=== PATIENT | female | born 1960 | race Caucasian/White ===

== ENCOUNTER → 2016-09-18 | Outpatient (CLI) | payer MEDICAID | LOC: FIMAGING 11:01 | PROVIDERS: ATTEND Registered Nurse | DX: M79.675 Pain in left toe(s) (principal); M19.072 Primary osteoarthritis, left ankle and foot ==

== ENCOUNTER 2017-02-28 19:55 | Emergency (ER) | payer MEDICAID ==
[2017-02-28 20:02] VITALS: TEMP 98.1
--- NOTE | 2017-02-28 20:05 | EDPHY ---
H & P Stated Complaint: right sided back spasm starting at 0900 Time Seen by Provider: 02/28/17 20:05 - Personal History Current Tetanus/Diphtheria Vaccine: Unsure Current Tetanus Diphtheria and Acellular Pertussis (TDAP): Unsure - Medical/Surgical History Hx Asthma: No Hx Chronic Respiratory Disease: No Hx Diabetes: No Hx Cardiac Disease: No Hx Renal Disease: No Hx Cirrhosis: No Hx Alcoholism: No Hx HIV/AIDS: No Hx Splenectomy or Spleen Trauma: No Other PMH: denies - Social History Smoking Status: Never smoked Constitutional: Initial Vital Signs Temperature (C) 36.7 C 02/28/17 19:58 Heart Rate 55 L 02/28/17 19:58 Respiratory Rate 16 02/28/17 19:58 Blood Pressure 122/80 H 02/28/17 19:58 O2 Sat (%) 99 02/28/17 19:58 O2 Delivery Mode Room Air Allergies/Adverse Reactions: No Known Allergies Allergy (Unverified 02/28/17 19:58) Home Medications: Medication Instructions Recorded NK [No Known Home Meds] 02/28/17 Medical Decision Making ED Course/Re-evaluation: CHIEF COMPLAINT: HISTORY OF PRESENT ILLNESS: must have 4 elements: Location, Quality, Severity , Duration, Timing, Context, Modifying Factors, Associated Signs and Symptoms REVIEW OF SYSTEMS: A 10 point review of systems was performed and is negative with the exception of the elements mentioned in the history of present illness. PHYSICAL EXAM: HR, BP, O2 Sat, RR. Temp noted General Appearance: Alert, well hydrated, appropriate, and non-toxic appearing. Head: Atraumatic without scalp tenderness or obvious injury Eyes: Pupils equal, round, reactive to light and accommodation, EOMI, no trauma , no injection. Ears: Clear bilaterally, no perforation, normal landmarks Nose: Atraumatic, no rhinorrhea, clear. Throat: There is no erythema or exudates, no lesions, normal tonsils, mucus membranes moist. Neck: Supple, 2+ carotid upstroke, nontender, no lymphadenopathy. Respiratory: No retractions, no distress, no wheezes, and no accessory muscle use. Lungs are clear to auscultation bilaterally. Cardiovascular: Regular rate and rhythm, no murmurs, rubs, or gallops. Bilateral carotid, radial, dorsalis pedis, and posterior tibial pulses intact. Good capillary refill all extremities. Gastrointestinal: Abdomen is soft, nontender, non-distended, no masses, no rebound, no guarding, no peritoneal signs. Musculoskeletal: Normal active ROM of all extremities, atraumatic. Neurological: Alert, appropriate, and interactive. The patient has normal DTRs and non-focal cranial nerves, motor, sensory, and cerebellar exam. Skin: No rashes, good turgor, no nodules on palpation. Past medical history: Past surgical history: Family history: Social history: DIAGNOSTICS/PROCEDURES/CRITICAL CARE TIME: DIFFERENTIAL DIAGNOSIS: MEDICAL DECISION MAKING: Departure - Departure Condition: Good
--- NOTE | 2017-02-28 20:09 | EDPHY ---
HPI/HX/ROS/PE/MDM - Data Points Imaging: I viewed and interpreted images myself Narrative: CHIEF COMPLAINT: Back spasms HISTORY OF PRESENT ILLNESS: The patient is a 57 y/o female complaining of upper back / posterior chest pain and spasms since 09:00, 11 hours ago. She was sitting on the couch when the pain began. Moving a tennis ball under her right ribs provides mild relief of her back pain. Hot water bottle seems to provide the most relief. When she has to move, she feels nauseous, dizzy, and lightheaded. Some of her symptoms today are similar to prior episodes of frozen shoulder syndrome. Travelled to [place] last week. Denies history of kidney stones or DVT. Patient reports discomfort when taking a deep breath but feels like it is mostly related to just the movement. No fever, chills, anterior chest pain, palpitations, vomiting, diarrhea, urinary complaints, headache, radiculopathy. REVIEW OF SYSTEMS: Aside from elements discussed in the HPI, a comprehensive 10-point review of systems was reviewed and is negative. PAST MEDICAL HISTORY: Frozen shoulder syndrome SOCIAL HISTORY: Daughter at bedside, lives in [place], self-employed VITAL SIGNS: Reviewed by me GENERAL: Well-developed, well-nourished, very uncomfortable appearing. Lying on hot water bottle and a tennis ball. HEENT: Atraumatic. Eyes: No icterus, no injection. Mouth: Slightly dry mucous membranes. No erythema or lesions. Neck: supple with no adenopathy. LUNGS: Clear to auscultation bilaterally, no wheezes, rhonchi or rales. CARDIAC: Regular rate and rhythm, no rubs, murmurs or gallops. ABDOMEN: Soft, nontender, nondistended, bowel sounds normal. BACK: Focal area of severe discomfort and tenderness to palpation right posterior chest wall, just to the right of a T8-9 area. No rash seen, although the area is quite erythematous because of the hot water bottle. No crepitus. No CVA tenderness. EXTREMITIES: No trauma. No edema. Range of motion is normal throughout. NEURO: Alert and oriented, grossly nonfocal. SKIN: Warm and dry, no rash. PSYCHIATRIC: Normal mentation, no agitation. Portions of this note were transcribed by a medical technologist prn. I personally performed a history, physical exam, medical decision making, and confirmed accuracy of information the transcribed note. (Debbie Rose) ED Course: The patient is a 57 y/o female presenting with mid posterior thoracic tenderness for 11 hours. I discussed other diagnoses including pulmonary and renal pathology. However, the patient felt strongly that this pain was solely musculoskeletal. She would prefer to start only with medications. 1g PO Tylenol, 5mg PO Valium, 15mg IM Toradol, 10mg PO Flexeril, and Lidocaine patch administered. 2101: Reassessed patient, she is still in pain. Will expand the differential. Patient had IV placed and received a mg of Dilaudid. Labs, chest x-ray ordered. Patient's laboratory evaluation is largely unremarkable. Chest x-ray looks normal. D-dimer is negative. EKG is normal sinus rhythm. Patient was reassessed again at 2199. She states that the Dilaudid did finally help her pain but that it is coming back. No diaphoresis. Patient was ambulatory to the bathroom. She reports feeling dizzy when she went to walk to the bathroom. Urinalysis is positive for 15-25 red blood cells per high-power field. Patient states no discomfort with urination. At this point the cause of the patient's discomfort, which was quite abrupt and quite severe remains unclear. Her vital signs have been stable. Given hematuria plan was made to further evaluate with a CT angiogram scan of the chest and abdomen pelvis to evaluate for mass, hemorrhage, dissection. Patient's care was assumed by Dr. Bañuelos pending the CT scans. (Debbie Rose) MDM: Differential diagnoses for the patient's symptom complex was considered including but not limited to muscle spasm, intracostal muscle strain, pleurisy, pulmonary embolism, pneumothorax, kidney stone, zoster, dissection. (Debbie Rose) I was asked to follow up on this patient in her CT scan. CT scan chest abdomen pelvis with IV contrast was performed and was unremarkable. I recheck the patient and she is feeling much better, she is relieved to know that her test results are normal. She would like to go home. She will be discharged with medication for pain. I feel her pain is likely musculoskeletal at this point. (Cat Dave) - Data Points Imaging Results: Xray: Chest x-ray was obtained. I viewed the images myself on the PACS system. My interpretation of the images is: No pneumothorax, no infiltrate. The radiology interpretation is: Pending. I discussed the results with the patient. (Debbie Rose) Laboratory Results: Laboratory Results 02/28/17 21:33 02/28/17 21:33 02/28/17 02/28/17 02/28/17 22:36 21:33 21:33 WBC RBC Hgb Hct MCV MCH MCHC RDW Plt Count MPV Neut % (Auto) Lymph % (Auto) [place] % (Auto) Eos % (Auto) Baso % (Auto) Nucleat RBC Rel Count Absolute Neuts (auto) Absolute Lymphs (auto) Absolute Monos (auto) Absolute Eos (auto) Absolute Basos (auto) Absolute Nucleated RBC Immature Gran % Immature Gran # D-Dimer Sodium Potassium Chloride Carbon Dioxide Anion Gap BUN Creatinine Estimated GFR Glucose Calcium Total Bilirubin Conjugated Bilirubin Unconjugated Bilirubin AST ALT Alkaline Phosphatase Troponin I < 0.012 ng/mL ng/mL (0.000-0.034) Total Protein Albumin Lipase Beta HCG, Qual NEGATIVE Urine Color YELLOW Urine Appearance HAZY Urine pH 5.0 (5.0-7.5) Ur Specific [place] 1.021 (1.002-1.030) Urine Protein NEGATIVE (NEGATIVE) Urine Ketones 1+ H (NEGATIVE) Urine Blood NEGATIVE (NEGATIVE) Urine Nitrate NEGATIVE (NEGATIVE) Urine Bilirubin NEGATIVE (NEGATIVE) Urine Urobilinogen NEGATIVE EU EU (0.2-1.0) Ur Leukocyte Esterase NEGATIVE (NEGATIVE) Urine RBC 15-25 /hpf H /hpf (0-3) Urine WBC 3-5 /hpf H /hpf (0-3) Ur Epithelial Cells TRACE /lpf /lpf (NONE-1+) Urine Bacteria TRACE /hpf H /hpf (NONE SEEN) Urine Mucus 2+ /lpf H /lpf (NONE-1+) Urine Glucose NEGATIVE (NEGATIVE) 02/28/17 02/28/17 02/28/17 21:33 21:33 21:33 WBC 5.63 10^3/uL 10^3/uL (3.80-9.50) RBC 4.42 10^6/uL 10^6/uL (4.18-5.33) Hgb 14.5 g/dL g/dL (12.6-16.3) Hct 41.9 % % (38.0-47.0) MCV 94.8 fL fL (81.5-99.8) MCH 32.8 pg pg (27.9-34.1) MCHC 34.6 g/dL g/dL (32.4-36.7) RDW 11.7 % % (11.5-15.2) Plt Count 228 10^3/uL 10^3/uL (150-400) MPV 9.8 fL fL (8.7-11.7) Neut % (Auto) 78.2 % H % (39.3-74.2) Lymph % (Auto) 16.0 % % (15.0-45.0) [place] % (Auto) 4.6 % % (4.5-13.0) Eos % (Auto) 0.4 % L % (0.6-7.6) Baso % (Auto) 0.4 % % (0.3-1.7) Nucleat RBC Rel Count 0.0 % % (0.0-0.2) Absolute Neuts (auto) 4.41 10^3/uL 10^3/uL (1.70-6.50) Absolute Lymphs (auto) 0.90 10^3/uL L 10^3/uL (1.00-3.00) Absolute Monos (auto) 0.26 10^3/uL L 10^3/uL (0.30-0.80) Absolute Eos (auto) 0.02 10^3/uL L 10^3/uL (0.03-0.40) Absolute Basos (auto) 0.02 10^3/uL 10^3/uL (0.02-0.10) Absolute Nucleated RBC 0.00 10^3/uL 10^3/uL (0-0.01) Immature Gran % 0.4 % % (0.0-1.1) Immature Gran # 0.02 10^3/uL 10^3/uL (0.00-0.10) D-Dimer < 0.27 ug/mLFEU ug/mLFEU (0.00-0.50) Sodium 142 mEq/L mEq/L (134-144) Potassium 4.2 mEq/L mEq/L (3.5-5.2) Chloride 103 mEq/L mEq/L (97-110) Carbon Dioxide 22 mEq/l mEq/l (22-31) Anion Gap 17 mEq/L H mEq/L (8-16) BUN 15 mg/dL mg/dL (7-23) Creatinine 0.8 mg/dL mg/dL (0.6-1.0) Estimated GFR > 60 Glucose 96 mg/dL mg/dL (70-100) Calcium 10.3 mg/dL mg/dL (8.5-10.4) Total Bilirubin 1.1 mg/dL mg/dL (0.1-1.4) Conjugated Bilirubin 0.2 mg/dL mg/dL (0.0-0.5) Unconjugated Bilirubin 0.9 mg/dL mg/dL (0.0-1.1) AST 22 IU/L IU/L (14-46) ALT 34 IU/L IU/L (9-52) Alkaline Phosphatase 60 IU/L IU/L (38-126) Troponin I Total Protein 8.1 g/dL g/dL (6.3-8.2) Albumin 4.8 g/dL g/dL (3.5-5.0) Lipase 115 IU/L IU/L (23-300) Beta HCG, Qual Urine Color Urine Appearance Urine pH Ur Specific [place] Urine Protein Urine Ketones Urine Blood Urine Nitrate Urine Bilirubin Urine Urobilinogen Ur Leukocyte Esterase Urine RBC Urine WBC Ur Epithelial Cells Urine Bacteria Urine Mucus Urine Glucose Medications Given: Discontinued Medications Acetaminophen (Tylenol) 1,000 mg PO EDNOW ONE Stop: 02/28/17 20:17 Last Admin: 02/28/17 20:24 Dose: 1,000 mg Cyclobenzaprine HCl (Flexeril) 10 mg PO EDNOW ONE Stop: 02/28/17 20:17 Last Admin: 02/28/17 20:26 Dose: 10 mg Diazepam (Valium) 5 mg PO EDNOW ONE Stop: 02/28/17 20:17 Last Admin: 02/28/17 20:26 Dose: 5 mg Hydromorphone HCl (Dilaudid) 1 mg IVP EDNOW ONE Stop: 02/28/17 21:07 Last Admin: 02/28/17 21:27 Dose: 1 mg Ketorolac Tromethamine (Toradol) 15 mg IM EDNOW ONE Stop: 02/28/17 20:17 Last Admin: 02/28/17 20:27 Dose: 15 mg Lidocaine (Lidoderm 5%) 1 ea TD EDNOW ONE Stop: 02/28/17 20:26 Last Admin: 02/28/17 20:33 Dose: 1 ea General Time Seen by Provider: 02/28/17 20:05 Initial Vital Signs: Initial Vital Signs Temperature (C) 36.7 C 02/28/17 19:58 Heart Rate 55 L 02/28/17 19:58 Respiratory Rate 16 02/28/17 19:58 Blood Pressure 122/80 H 02/28/17 19:58 O2 Sat (%) 99 02/28/17 19:58 O2 Delivery Mode Room Air Allergies/Adverse Reactions: No Known Allergies Allergy (Unverified 02/28/17 19:58) Home Medications: Medication Instructions Recorded Cyclobenzaprine [Flexeril 10 MG 10 mg PO TID PRN #20 tab 02/28/17 (RX)] Hydrocodone/APAP 5/325 [Felt 1 tab PO Q6H PRN #10 tab 02/28/17 5/325 (RX)] Departure - Departure Disposition: Home, Routine, Self-Care Clinical Impression: Back pain Qualifiers: Back pain location: thoracic back pain Chronicity: acute Back pain laterality: right Qualified Code(s): M54.6 - Pain in thoracic spine Condition: Good Instructions: Back Pain (ED) Additional Instructions: Return to the emergency department for severe pain, fever, numbness, difficulty walking, change in location or nature of pain or other concerns. Use ibuprofen and Tylenol as directed. Adult Pain & Fever Control: We recommend Acetaminophen (Tylenol) and Ibuprofen (Motrin,Advil) for pain and fever control. When fever is high or pain severe, both drugs can be used at the same time, but at different intervals. Please note the time differences. Your dose is: Acetaminophen 650-1000 mg every 4 to 6 hours Ibuprofen 600 mg every 8 hours with food Note: do not take Acetaminophen with Hydrocodone (Vicodin, Lortab) or Oycodone (Percocet). These medications also contain Acetaminophen. No more than 3000mg of Acetaminophen should be taken in 24 hours (for an adult). You have been given a prescription of Flexeril. This is a muscle relaxant. You may use this as needed. You been given a prepack of hydrocodone. This is a narcotic. Please take this as needed for severe pain. Lidocaine patches are available [id number]. Referrals: Chepe South, [Doctor of Osteopathy] - As per Instructions Prescriptions: Cyclobenzaprine [Flexeril 10 MG (RX)] 10 mg PO TID PRN #20 tab PRN Reason: Muscle Spasms Hydrocodone/APAP 5/325 [Felt 5/325 (RX)] 1 tab PO Q6H PRN #10 tab PRN Reason: Pain Report Scribed for: Debbie Rose Report Scribed by: Subha Ribera Date of Report: 02/28/17 Time of Report: 20:12
[2017-02-28] MEDS ORDERED: DIAZEPAM 5 MG TAB PO ONE (20:16)
[2017-02-28] MEDS ORDERED: ACETAMINOPHEN 500 MG TAB PO ONE (20:16)
[2017-02-28] MEDS ORDERED: CYCLOBENZAPRINE 10 MG TAB PO ONE (20:16)
[2017-02-28] MEDS ORDERED: KETOROLAC 15 MG/1 ML SDV IM ONE (20:16)
[2017-02-28] MEDS ORDERED: LIDOCAINE 5% 1 EA PATCH TD ONE (20:25)
[2017-02-28] MEDS ORDERED: PATCH REMOVAL 1 EA PATCH TD SCH (21:00)
[2017-02-28] MEDS ORDERED: HYDROmorphONE/DILAUDID 1 MG/ML INJ IVP ONE (21:06)
[2017-02-28 21:42] LABS: % IMMATURE GRANULYOCYTES 0.4 % (0.0-1.1); ABSOLUTE IMMATURE GRANULOCYTES 0.02 10^3/uL (0.00-0.10); ADD DIFF? NO; ADD MORPH? NO; ADD SCAN? NO; ATYPICAL LYMPHOCYTE FLAG 10 (0-99); FRAGMENT RBC FLAG 0 (0-99); HEMATOCRIT 41.9 % (38.0-47.0); HEMOGLOBIN 14.5 g/dL (12.6-16.3); LEFT SHIFT FLG 0 (0-99); LIPEMIA HEMOLYSIS FLAG 90 (0-99); MEAN CELL HEMOGLOBIN 32.8 pg (27.9-34.1); MEAN CELL HEMOGLOBIN CONCENTR. 34.6 g/dL (32.4-36.7); MEAN CELL VOLUME 94.8 fL (81.5-99.8); MEAN PLATELET VOLUME 9.8 fL (8.7-11.7); PLATELET CLUMPS FLAG 10 (0-99); PLATELET COUNT 228 10^3/uL (150-400); RED BLOOD CELL COUNT 4.42 10^6/uL (4.18-5.33); RED CELL DISTRIBUTION WIDTH 11.7 % (11.5-15.2)
[2017-02-28 22:06] LABS: ALANINE AMINOTRANSFERASE 34 IU/L (9-52); ALBUMIN 4.8 g/dL (3.5-5.0); ALKALINE PHOSPHATASE 60 IU/L (38-126); ANION GAP 17 mEq/L (8-16); ASPARTATE AMINOTRANSFERASE 22 IU/L (14-46); BILIRUBIN,TOTAL 1.1 mg/dL (0.1-1.4); BILIRUBIN-CONJUGATED 0.2 mg/dL (0.0-0.5); BILIRUBIN-UNCONJUGATED 0.9 mg/dL (0.0-1.1); CALCIUM 10.3 mg/dL (8.5-10.4); CARBON DIOXIDE 22 mEq/l (22-31); CHLORIDE 103 mEq/L (97-110); CREATININE 0.8 mg/dL (0.6-1.0); GLOMERULAR FILTRATION RATE > 60; GLUCOSE 96 mg/dL (70-100); POTASSIUM 4.2 mEq/L (3.5-5.2); SODIUM 142 mEq/L (134-144); TOTAL PROTEIN 8.1 g/dL (6.3-8.2)
[2017-02-28] MEDS ORDERED: CYCLOBENZAPRINE 10MG PREPACK#3 BTL TAKEHOME ONE (22:27)
[2017-02-28] MEDS ORDERED: HYDROCOD/APAP 5/325 PREPACK#6 BTL TAKEHOME ONE (22:27)
[2017-02-28 22:45] LABS: COLOR YELLOW; LEUKOCYTE ESTERASE,URINE NEGATIVE (NEGATIVE); NITRITE,URINE NEGATIVE (NEGATIVE)
[2017-02-28 22:48] LABS: BACTERIA TRACE /hpf (NONE SEEN); MUCUS 2+ /lpf (NONE-1+); RBC,URINE 15-25 /hpf (0-3)
--- NOTE | 2017-02-28 22:54 | CPEKG ---
Heart Rate: 58 RR Interval: 1034 P-R Interval: 192 QRSD Interval: 86 QT Interval: 448 QTC Interval: 441 P [place]: 79 QRS [place]: 83 T Wave [place]: 60 EKG Severity - BORDERLINE ECG - EKG Impression: SINUS RHYTHM Electronically Signed By: Cat Dave 01-Mar-2017 06:42:37
[2017-02-28] MEDS ORDERED: IOPAMIDOL (ISOVUE 370) 100 ML BTL IV ONE (23:11)
[2017-03-01 00:26] VITALS: RESP 15
[2017-03-01 01:04] VITALS: BP 101/63; PULSE 62; O2SAT 97
== END 2017-03-01 01:03 | disposition home or self-care (01) ==
DX: M54.6 Pain in thoracic spine (principal)
CPT/HCPCS: 96374; J1170; J1885; Q9967

== ENCOUNTER 2017-10-18 16:49 | Emergency (ER) | payer MEDICAID ==
[2017-10-18 16:55] VITALS: BP 109/72
[2017-10-18] MEDS ORDERED: TDAP ADULT 0.5 ML INJ (BOOSTRIX) IM ONE (17:13)
--- NOTE | 2017-10-18 17:13 | EDPHY ---
General Time Seen by Provider: 10/18/17 17:05 Narrative: CHIEF COMPLAINT: Laceration HISTORY OF PRESENT ILLNESS: Patient presents with complaints of laceration to forehead. She states that she was in her home when she accidentally struck her forehead on the counter. This happened within the past 2 hr. She did not lose consciousness. She has no headache, neck pain or motor or sensory complaints distally. Her only complaint is a laceration on her forehead. She knows that was bleeding heavily but is stop pressure. No nausea or vomiting. No visual disturbance. No injury elsewhere. No other associated complaints or modifying factors. TIME OF INJURY: Less than 2 hr prior to arrival TETANUS STATUS: Up-to-date MEDICAL/SURGICAL/SOCIAL HISTORY: Uncomplicated. No use of anticoagulants REVIEW OF SYSTEMS: Ten systems reviewed and are negative unless otherwise noted in the HPI EXAMINATION General Appearance: Alert, no distress Head: normocephalic, atraumatic aside from laceration as below. There is no Shook sign. No raccoon eyes. No hematoma or depression. Cardiovascular: Pulses normal throughout. Brisk cap refill Neurological: GCS 15. A&O, light sensory symmetric in the upper lower extremities. Normal [id number]. No pronator drift. Normal steady gait. Skin: Warm and dry, no rash. 2.5 cm vertical laceration on the superior aspect of the forehead ending just proximal to the hairline. No pulsatile bleeding. No exposure of the galea. No foreign body. Extremities: Nontender, no pedal edema DIFFERENTIAL DIAGNOSES: Including but not limited to laceration, complex laceration, laceration with galea injury, intracranial hemorrhage, frontal fracture, basilar skull fracture MDM: 5:05 p.m. 2.5 cm vertical laceration on the forehead just proximal to the hairline. There is no exposure of the galea or frontalis muscle. She has full range of motion of the eyebrows and eyelids. She will need a Tdap booster. I have administered lidocaine and we will irrigate close the wound. There is no indication for CT scan of the head. She is awake alert, no distress with normal neuro examination and [place] CT head rules are negative. 5:45 p.m. Wound has been sutured with excellent approximation wound borders. We discussed wound care. We discussed ED precautions head injury and signs of infection. We discussed follow up here in 5-7 days for suture removal. She is comfortable this plan and discharged home stable condition PROCEDURE: Laceration repair Consent: Verbal Location: Forehead Length of repair: 2.5 cm Complexity: Simple Layer involvement: Single Anesthesia: Local per 1% lidocaine with epinephrine, 5 mL Irrigation: Extensive Debridement: None Procedure description: Following good anesthesia, the wound was copiously irrigated. Wound bed was explored with a sterile glove, and there is no foreign body noted. No injury to the galea. Wound borders were approximated well with good hemostasis. Tolerated well without complication. Suture/Staple material: 6-0 Prolene, 3 simple sutures Wound care: Routine as discussed Suture/Staple removal: 5-7 Days SUPERVISION: This patient was independently evaluated without direct involvement of or examination by the attending physician. ED Precautions: Worsening pain. Erythema, edema, cyanosis, pallor, paresthesia or anesthesia. - History Smoking Status: Never smoked - Objective Vital Signs: Initial Vital Signs Temperature (C) 97.5 F 10/18/17 16:53 Heart Rate 69 10/18/17 16:53 Respiratory Rate 16 10/18/17 16:53 Blood Pressure 109/72 10/18/17 16:53 O2 Sat (%) 97 10/18/17 16:53 O2 Delivery Mode Room Air Allergies/Adverse Reactions: No Known Allergies Allergy (Verified 10/18/17 16:51) Home Medications: Medication Instructions Recorded NK [No Known Home Meds] 10/18/17 Medications Given: Discontinued Medications Diphtheria/Tetanus/Acell Pertussis (Boostrix) 0.5 ml IM .ONCE ONE Stop: 10/18/17 17:14 Last Admin: 10/18/17 17:34 Dose: 0.5 ml Departure - Departure Disposition: Home, Routine, Self-Care Clinical Impression: Facial laceration Qualifiers: Encounter type: initial encounter Qualified Code(s): S01.81XA - Laceration without foreign body of other part of head, initial encounter Closed head injury Qualifiers: Encounter type: initial encounter Qualified Code(s): S09.90XA - Unspecified injury of head, initial encounter Condition: Good Instructions: Diphtheria/Pertussis/Tetanus Vaccine (By injection), Care For Your Stitches (ED), Laceration (ED) Additional Instructions: 1. Daily wound care with thin layer bacitracin once daily 2. Return here in 5-7 days for suture removal 3. Head injury precautions as discussed Referrals: Jailyn Mahoney MD [Medical Doctor] - As per Instructions Physician,Emergency Dept, [Medical Doctor] - As per Instructions (5-7 days for suture removal)
== END 2017-10-18 18:13 | disposition home or self-care (01) ==
PROC: 0HQ1XZZ Repair Face Skin, External Approach (ICD-10-PCS; principal; 2017-10-18)
DX: S01.81XA Laceration without foreign body of other part of head, initial encounter (principal); Z23 Encounter for immunization; W22.8XXA Striking against or struck by other objects, initial encounter; Y92.009 Unspecified place in unspecified non-institutional (private) residence as the place of occurrence of the external cause